=== PATIENT | female | born 1950 | race African-American/Black ===

== ENCOUNTER 2020-05-06 10:54 | Emergency (ER) | payer MEDICARE ==
[~2020-05-06] VITALS: Ht 157.5 cm; Wt 49.0 kg
[2020-05-06 11:08] VITALS: BP 110/70
--- NOTE | 2020-05-06 11:18 | Emergency Room Report ---
History of Present Illness General Chief Complaint: Constipation Source: Patient Present Illness HPI Disclaimer: Please note that this report is being documented using DRAGON technology. This can lead to erroneous entry secondary to incorrect interpretation by the dictating instrument. HPI: 64-year-old otherwise healthy female presents for evaluation of constipation. Patient reports constipation over the past 2 months. Denies abdominal pain or distention. Denies vomiting. Continues to pass stools only with the aid of laxatives and she states these are small. Denies melena or hematochezia. States she eats plenty of fiber. Using a natural laxative and so metimes MiraLAX to help. She feels she is not completely empty. Otherwise denies fever, chills, chest pain, palpitations, changes in urination. 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 EOMI. Resp: Normal work of breathing Abdomen: Soft, nontender, nondistended, no masses. Skin: Intact. No abrasions, laceration or rash over the exposed skin MSK: Normal tone and bulk. Moving all extremities. No obvious deformity. Neuro: Awake and alert. Mentating appropriately Medical Decision Making Diagnostic Impression: Primary Impression: Constipation ER Course 69-year-old female presents for evaluation of constipation. X-ray was obtained to evaluate for possible obstruction and to assess fecal burden. No evidence of obstruction but moderate fecal burden throughout the colon. We will prescribe MiraLAX and Dulcolax for bowel cleanout at home. Instructions provided. Will follow up with PMD to schedule colonoscopy on an outpatient basis. She is otherwise well-appearing, afebrile and resting comfortably in bed. Do not believe she requires emergent blood work or advanced imaging at this time. Instructed to return with new or worsening symptoms. Other X-Ray Diagnostic Results Other X-Ray Diagnostic Results : X-Ray ordered: Abdomen # of Views/Limited Vs Complete: 1 View Indication: Other - Constipation EP Interpretation: Yes Interpretation: nonspecific bowel gas, no sbo Impression: Other - Moderate stool burden throughout the colon. No impaction. Electronically Signed by: Electronically signed by Dr. Yusuf Adan MD Last Vital Signs Date Time Temp Pulse Resp B/P (MAP) Pulse Ox O2 Delivery O2 Flow Rate FiO2 05/06/20 11:08 98.6 80 20 110/70 98 Room Air Disposition: HOME, SELF-CARE Condition: Stable Scripts Bisacodyl* (DULCOLAX*) 5 Mg Tablet. 20 MG ORAL ONCE, #4 TAB 0 Refills Prov: Yusuf Adan MD 05/06/20 Polyethylene Glycol 3350 ([id number]) 510 Gm Powder 510 GM PO ONCE, #510 GM Prov: Yusuf Adan MD 05/06/20 Yusuf Adan MD May 06, 2020 11:18
--- NOTE | 2020-05-06 11:43 | Diagnostic Imaging Report ---
EXAM: XRAY Abdomen 1v HISTORY: Abdominal distention COMPARISON: None. TECHNIQUE: Frontal view of the abdomen obtained. FINDINGS: There is a nonobstructed bowel gas pattern. Increased stool lucencies noted throughout the colon. No definite pathologic calcifications identified. There is no sign of free air. No acute abnormality noted of the visualized osseous structures. IMPRESSION: INCREASED STOOL LUCENCIES THROUGHOUT THE COLON PERHAPS REFLECTING CONSTIPATION.
[2020-05-06] MEDS ORDERED: PEG3350510 GM PO (11:50)
[2020-05-06] MEDS ORDERED: BISACODYL5 MG ORAL (11:50)
[2020-05-06 11:55] VITALS: BP 105/65
== END 2020-05-06 11:55 | disposition home or self-care (01) ==
LOC: EMR 11:23
DX: K59.00 Constipation, unspecified (principal); K21.9 Gastro-esophageal reflux disease without esophagitis
CPT/HCPCS: 74018; 99283